=== PATIENT | male | born 1990 | race African-American/Black ===

== ENCOUNTER 2022-04-16 20:29 | Emergency (ER) | payer SELFPAY ==
[~2022-04-16] VITALS: Ht 190.5 cm; Wt 97.7 kg
[2022-04-16 20:30] VITALS: BP 154/74
== END 2022-04-16 23:10 | disposition left against medical advice (07) ==
LOC: M ED 20:29
DX: Z53.21 Procedure and treatment not carried out due to patient leaving prior to being seen by health care provider (principal)